=== PATIENT | male | born 2000 | race Caucasian/White ===

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

== ENCOUNTER 2019-01-27 17:10 | Emergency (ER) | payer OTHER ==
[~2019-01-27] VITALS: Ht 177.8 cm; Wt 113.3 kg
[2019-01-27 18:53] VITALS: BP 114/58
== END 2019-01-27 19:02 | disposition home or self-care (01) ==
LOC: M ED 17:10
DX: F33.9 Major depressive disorder, recurrent, unspecified (principal); F41.9 Anxiety disorder, unspecified; F60.0 Paranoid personality disorder

== ENCOUNTER → 2019-02-18 | Outpatient (REF) | payer OTHER ==
[2019-02-18 12:04] LABS: BASO % 0.5 % (0.0-1.0); EOS # 0.1 10^3/uL (0.0-0.50); EOS % 1.5 % (0.0-3.0); HEMATOCRIT 47.9 % (42.0-52.0); HEMOGLOBIN 15.9 g/dl (13.5-17.5); LYMPH # 2.6 10^3/uL (1.5-6.5); LYMPH % 33.4 % (24.0-44.0); MEAN CORPUSCULAR HEMOGLOBIN 29.3 pg (27.0-33.0); MEAN CORPUSCULAR HGB CONC 33.2 g/dl (32.0-36.5); MEAN CORPUSCULAR VOLUME 88.4 fl (80.0-96.0); MONO # 0.5 10^3/uL (0.0-0.8); MONO % 6.8 % (0.0-5.0); NEUTROPHILS # 4.5 10^3/uL (1.8-7.7); NEUTROPHILS % 57.5 % (36.0-66.0); PLATELET COUNT, AUTOMATED 261 10^3/uL (150-450); RED BLOOD COUNT 5.42 10^6/uL (4.30-6.10); WHITE BLOOD COUNT 7.8 10^3/uL (4.0-10.0)
[2019-02-18 12:19] LABS: ALBUMIN 4.2 GM/DL (3.2-5.2); ALT/SGPT 56 U/L (12-78); BILIRUBIN,TOTAL 0.7 MG/DL (0.2-1.0); BLOOD UREA NITROGEN 11 MG/DL (7-18); CARBON DIOXIDE LEVEL 29 MEQ/L (21-32); CHLORIDE LEVEL 106 MEQ/L (98-107); CHOLESTEROL LEVEL 163 MG/DL (<200); CHOLESTEROL RISK RATIO 4.179 (<5); CREATININE FOR GFR 0.89 MG/DL (0.70-1.30); GLUCOSE, FASTING 112 MG/DL (70-100); HDL CHOLESTEROL 39 MG/DL (>40); LDL CHOLESTEROL 102 MG/DL (<100); NON-HDL-C 124 MG/DL; POTASSIUM SERUM 3.7 MEQ/L (3.5-5.1); SODIUM LEVEL 142 MEQ/L (136-145); THYROID STIMULATING HORMONE 0.906 uIU/ML (0.463-3.98); TOTAL 25(OH) VITAMIN D 12.1 NG/ML (30.0-100.0); TOTAL PROTEIN 7.7 GM/DL (6.4-8.2); TRIGLYCERIDES LEVEL 108 MG/DL (<150)
[2019-02-18 12:46] LABS: HEMOGLOBIN A1c 5.2 %
== END ==
LOC: M LAB REF 11:33
PROVIDERS: ATTEND Nurse Practitioner Family
DX: Z13.9 Encounter for screening, unspecified (principal)

== ENCOUNTER → 2019-03-04 | Outpatient (REF) | payer OTHER ==
[2019-03-04 14:18] LABS: AMORPHOUS SEDIMENT LARGE (NEGATIVE); APPEARANCE, URINE TURBID (CLEAR); BACTERIA, URINE AUTO NEGATIVE (NEGATIVE); BILIRUBIN, URINE AUTO NEGATIVE (NEGATIVE); BLOOD, URINE BLOOD 1+ (NEGATIVE); CALCIUM OXALATE CRYSTALS SMALL; COLOR, URINE YELLOW (YELLOW); GLUCOSE, URINE (UA) AUTO NEGATIVE (NEGATIVE); KETONE, URINE AUTO NEGATIVE (NEGATIVE); LEUKOCYTE ESTERASE, URINE AUTO NEGATIVE (NEGATIVE); MUCUS, URINE SMALL (NEGATIVE); NITRITE, URINE AUTO NEGATIVE (NEGATIVE); PROTEIN, URINE AUTO NEGATIVE (NEGATIVE); RBC, URINE AUTO 0 /HPF (0-3); SPECIFIC GRAVITY URINE AUTO 1.031 (1.002-1.035); SQUAMOUS EPITHELIAL CELL UR AU 0 /HPF (0-6); UROBILINOGEN, URINE AUTO 0.2 mg/dL (0.0-2.0); WBC, URINE AUTO 0 /HPF (0-3)
[2019-03-04 15:34] LABS: CHLAMYDIA DNA AMPLIFICATION NEGATIVE (NEGATIVE); GC DNA AMPLIFICATION NEGATIVE (NEGATIVE)
== END ==
LOC: M LAB REF 13:21
PROVIDERS: ATTEND Nurse Practitioner Family
DX: N50.819 Testicular pain, unspecified (principal)

== ENCOUNTER → 2019-03-26 | Outpatient (CLI) | payer OTHER ==
[~2019-03-26] MED LIST changes: -TRAZ-160 PO; +TRAZ-252 PO
--- NOTE | 2019-03-26 14:07 | REP ---
SCROTAL ULTRASOUND: Real-time sonographic evaluation of the scrotum and contents performed. Testicles normal in size and echotexture, right testicle measuring 5.1 x 2.4 x 3.1 cm and left testicle 5.0 x 2.5 x 3.2 cm. There is no testicular mass or torsion, blood flow is seen in each testicle with duplex Doppler evaluation, RI right testicle 0.63 and left testicle 0.66. There are tiny cysts in each epididymal head measuring 4 mm. No fluid collection is seen. IMPRESSION: Essentially negative scrotal ultrasound with no mass or torsion. Tiny epididymal cysts. Electronically Signed by Toney Hinton MD 03/30/2019 09:46 A
== END ==
LOC: M RAD 08:33
PROVIDERS: ATTEND Nurse Practitioner Family
DX: N50.3 Cyst of epididymis (principal)

== ENCOUNTER → 2019-06-08 | Outpatient (CLI) | payer OTHER ==
[2019-06-08 17:32] LABS: BLOOD UREA NITROGEN 13 MG/DL (7-18); C REACTIVE PROTEIN QUANTITATIV < 0.30 MG/DL (0.00-0.30); CREATININE FOR GFR 0.87 MG/DL (0.70-1.30); RHEUMATOID FACTOR QUANT < 10.0 IU/ML (<15.0)
[2019-06-14 14:29] LABS: ANTINUCLEAR ANTIBODIES DIRECT Negative (Negative); HLA-B27 Negative (.)
== END ==
LOC: M LAB 16:28
PROVIDERS: ATTEND Physician Assistant
DX: M54.5 Low back pain (principal)

== ENCOUNTER 2019-06-16 16:45 | Outpatient (RCR) | payer OTHER ==
[2019-06-18] MEDS ORDERED: KETO10TAB PO (04:14)
== END 2019-06-19 ==
LOC: M PT 16:45
PROVIDERS: ATTEND Physician Assistant
DX: Z47.89 Encounter for other orthopedic aftercare (principal); M54.5 Low back pain; M22.2X1 Patellofemoral disorders, right knee; M22.2X2 Patellofemoral disorders, left knee

== ENCOUNTER 2019-06-18 01:16 | Emergency (ER) | payer OTHER ==
[~2019-06-18] VITALS: Ht 177.8 cm; Wt 106.4 kg
[2019-06-18] MEDS ORDERED: KETOROLAC 60 MG/2 ML VIAL (J1885) IM ONE (03:45)
[2019-06-18] MEDS ORDERED: KETO10TAB PO (04:14)
--- NOTE | 2019-06-18 04:22 | REPVR ---
EXAM: US Duplex Left Lower Extremity Veins, Limited EXAM DATE/TIME: 06/18/2019 4:00 AM CLINICAL HISTORY: 19 years old, male; Pain; Leg, lower; Left TECHNIQUE: Imaging protocol: Real-time Duplex ultrasound of the Left Lower Extremity with 2-D high scale, color Doppler flow and spectral waveform analysis with image documentation. Limited exam focused on the left lower extremity veins. COMPARISON: No relevant prior studies available. FINDINGS: Left deep veins: The common femoral, femoral and popliteal veins are patent without thrombus. Normal Doppler waveforms. Normal compressibility and/or augmentation response. Left superficial veins: Saphenofemoral junction is patent without thrombus. Soft tissues: Unremarkable. IMPRESSION: No evidence of deep vein thrombosis. Electronically signed by: Cortes Plunkett On 06/18/2019 04:21:50 AM
[2019-06-18 04:26] VITALS: BP 115/73
--- NOTE | 2019-06-18 08:22 | REP ---
Right knee four views : There is no fracture or dislocation. Mineralization and joint spaces are normal. There are no calcifications or foreign bodies. Impression: Negative right knee . Electronically Signed by Toney Adams MD 06/18/2019 08:14 A
== END 2019-06-18 04:35 | disposition home or self-care (01) ==
LOC: M ED 01:16
DX: M79.662 Pain in left lower leg (principal); M25.561 Pain in right knee; M11.20 Other chondrocalcinosis, unspecified site; F41.9 Anxiety disorder, unspecified; F17.210 Nicotine dependence, cigarettes, uncomplicated
CPT/HCPCS: 73560; 93971; 96372; 99283; J1885

== ENCOUNTER → 2019-07-01 | Outpatient (REF) | payer OTHER, MEDICAID ==
[~2019-07-01] MED LIST changes: +KETO10TAB PO
[2019-07-01 19:51] LABS: BASO % 0.3 % (0.0-1.0); EOS # 0.1 10^3/uL (0.0-0.5); EOS % 1.1 % (0.0-3.0); HEMATOCRIT 46.8 % (42.0-52.0); HEMOGLOBIN 15.9 g/dl (13.5-17.5); LYMPH # 2.9 10^3/uL (1.5-5.0); LYMPH % 29.7 % (24.0-44.0); MEAN CORPUSCULAR HEMOGLOBIN 29.8 pg (27.0-33.0); MEAN CORPUSCULAR VOLUME 87.6 fl (80.0-96.0); MONO # 0.6 10^3/uL (0.0-0.8); MONO % 6.1 % (0.0-5.0); NEUTROPHILS # 6.2 10^3/uL (1.5-8.5); NEUTROPHILS % 62.5 % (36.0-66.0); PLATELET COUNT, AUTOMATED 311 10^3/uL (150-450); RED BLOOD COUNT 5.34 10^6/uL (4.30-6.10); WHITE BLOOD COUNT 9.9 10^3/uL (4.0-10.0)
[2019-07-01 19:53] LABS: ALBUMIN 4.2 GM/DL (3.2-5.2); ALT/SGPT 47 U/L (12-78); BILIRUBIN,TOTAL 0.8 MG/DL (0.2-1.0); BLOOD UREA NITROGEN 9 MG/DL (7-18); CARBON DIOXIDE LEVEL 30 MEQ/L (21-32); CHLORIDE LEVEL 104 MEQ/L (98-107); CREATININE FOR GFR 1.06 MG/DL (0.70-1.30); GLUCOSE, FASTING 91 MG/DL (70-100); POTASSIUM SERUM 4.1 MEQ/L (3.5-5.1); SODIUM LEVEL 141 MEQ/L (136-145); TOTAL PROTEIN 7.6 GM/DL (6.4-8.2)
[2019-07-01 20:03] LABS: PTH INTACT 15.7 PG/ML (18.5-88.0)
== END ==
LOC: M LAB REF 19:25
PROVIDERS: ATTEND Nurse Practitioner Family
DX: M25.561 Pain in right knee (principal); R53.83 Other fatigue

== ENCOUNTER → 2019-08-24 | Outpatient (REF) | payer OTHER ==
[2019-08-24 17:07] LABS: PLATELET COUNT, AUTOMATED 254 10^3/uL (150-450)
[2019-08-24 17:17] LABS: INR 1.12; PROTHROMBIN TIME 14.1 SECONDS (11.8-14.0)
[2019-08-24 17:18] LABS: PARTIAL THROMBOPLASTIN TIME 29.8 SECONDS (25.0-38.4)
== END ==
LOC: M LABDRAW1 16:40
PROVIDERS: ATTEND Physician Assistant
DX: Z01.812 Encounter for preprocedural laboratory examination (principal); M47.817 Spondylosis without myelopathy or radiculopathy, lumbosacral region

== ENCOUNTER → 2019-10-15 | Outpatient (CLI) | payer OTHER ==
[~2019-10-15] MED LIST changes: +GLUCAGON FOR INJ 1 MG VIAL (J1610) As Ordered ONE; +ISOVUE-370 76% 100ML VIAL (Q9967) As Ordered ONE; +VoLumen 0.1% SUSPENSION 450ML BOTTLE As Ordered ONE
--- NOTE | 2019-10-15 14:40 | REP ---
Clinical: Diarrhea. Crohn's disease. Technique: Axial contrast enhanced images from the lung bases to the pubic symphysis using CT enterographic technique including images obtained in arterial and portal venous phases of enhancement multiplanar MIP re-formations using low density oral contrast material and 100 ml Isovue 370 intravenous contrast. Findings: The small and large bowel is essentially unremarkable in both arterial and portal venous phases of enhancement. There is no evidence for submucosal edema/thickening, bowel wall thickening, infectious/inflammatory changes, stenosis/stricture, obstruction, or surrounding inflammatory stranding. No ascites. No free air. No obvious mesenteric adenopathy. Normal cecum, terminal ileum and appendix identified in the right lower quadrant. Liver, spleen, pancreas, gallbladder, bilateral adrenal glands and kidneys are normal. Pelvis demonstrates normal bladder and age appropriate prostate/seminal vesicles. No ascites. No adenopathy. No free air. Abdominal aorta and vasculature normal. Surrounding musculoskeletal structures are intact. Lung bases are clear. Impression: Normal CT enterography. No acute abdominopelvic pathology appreciated. Electronically Signed by Constantine Srivastava MD 10/15/2019 02:32 P
== END ==
LOC: M RAD 12:48
PROVIDERS: ATTEND Internal Medicine Gastroenterology
DX: K62.5 Hemorrhage of anus and rectum (principal); R19.7 Diarrhea, unspecified; K50.818 Crohn's disease of both small and large intestine with other complication
CPT/HCPCS: 74177; J1610; Q9967

== ENCOUNTER → 2019-10-21 | Outpatient (CLI) | payer OTHER ==
[~2019-10-21] MED LIST changes: -GLUCAGON FOR INJ 1 MG VIAL (J1610) As Ordered ONE; -ISOVUE-370 76% 100ML VIAL (Q9967) As Ordered ONE; -VoLumen 0.1% SUSPENSION 450ML BOTTLE As Ordered ONE
[2019-10-21 17:55] LABS: FREE T4 1.12 NG/DL (0.78-1.33); THYROID STIMULATING HORMONE 1.06 uIU/ML (0.463-3.98)
== END ==
LOC: M LAB 16:13
PROVIDERS: ATTEND Internal Medicine Gastroenterology
DX: R19.7 Diarrhea, unspecified (principal)

== ENCOUNTER 2019-12-31 12:34 | Day surgery (SDC) | payer OTHER ==
[~2019-12-31] VITALS: Ht 175.3 cm; Wt 92.1 kg
[~2019-12-31 12:34] MED LIST changes: +NS 1,000 ML IV ONE; +VITA500079 PO
[2019-12-31] MEDS ORDERED: propofoL 200 MG/20 ML VIAL As Ordered ONE ×2 (12:42→14:04)
[2019-12-31] MEDS ORDERED: LIDOCAINE 2% INJ 100 MG/5 ML SDV (FOR ANES.) As Ordered ONE (12:42)
--- NOTE | 2019-12-31 14:12 | ROOR ---
Patient Name: Yrn Rust Procedure Date: 12/31/2019 1:57 PM Date of : 2000 Age: 19 Room: [facility] Gender: Male Note Status: Finalized Procedure: Upper GI endoscopy Indications: Endoscopy to assess diarrhea in patient suspected of having disease of the small-bowel, Nausea Providers: Eduar HUITRON MD Referring MD: Annalee POST NP Requesting Provider: Medicines: Monitored Anesthesia Care Complications: No immediate complications. Procedure: Pre-Anesthesia Assessment: - The heart rate, respiratory rate, oxygen saturations, blood pressure, adequacy of pulmonary ventilation, and response to care were monitored throughout the procedure. The Endoscope was introduced through the mouth, and advanced to the second part of duodenum. The upper GI endoscopy was accomplished without difficulty. The patient tolerated the procedure well. Findings: Moderately severe esophagitis was found at the gastroesophageal junction. Biopsies were taken with a cold forceps for histology. The exam of the esophagus was otherwise normal. The entire examined stomach was normal. The examined duodenum was normal. Biopsies for histology were taken with a cold forceps for evaluation of celiac disease. Impression: - Moderately severe reflux esophagitis. Biopsied. - Otherwise normal stomach. - Normal stomach. - Normal examined duodenum. Biopsied. Recommendation: - Use Prilosec (omeprazole) 40 mg PO daily for 3 months. - (the script was sent to your pharmacy on file) Eduar Huitron MD Eduar HUITRON MD 12/31/2019 2:11:42 PM Electronically signed by Eduar HUITRON MD Number of Addenda: 0 Note Initiated On: 12/31/2019 1:57 PM Estimated Blood Loss: Estimated blood loss: none.
--- NOTE | 2019-12-31 14:31 | ROOR ---
Patient Name: Yrn Rust Procedure Date: 12/31/2019 1:58 PM Date of : 2000 Age: 19 Room: [facility] Gender: Male Note Status: Finalized Procedure: Colonoscopy Indications: Irritable bowel syndrome with diarrhea, Change in bowel habits, Diarrhea Providers: Eduar HUITRON MD Referring MD: Annalee POST NP Requesting Provider: Medicines: Monitored Anesthesia Care Complications: No immediate complications. Procedure: Pre-Anesthesia Assessment: - The heart rate, respiratory rate, oxygen saturations, blood pressure, adequacy of pulmonary ventilation, and response to care were monitored throughout the procedure. The Colonoscope was introduced through the anus and advanced to 15 cm into the ileum. The colonoscopy was performed without difficulty. The patient tolerated the procedure well. The quality of the bowel preparation was good. Findings: The perianal and digital rectal examinations were normal. The terminal ileum appeared normal. The colon (entire examined portion) appeared normal. Biopsies were taken with a cold forceps in the entire colon for histology. Fluid aspiration for Clostridium difficile was performed. Impression: - Small internal Hemorrhoids. - The terminal ileum is normal. - The entire colon is normal. - Biopsies were taken with a cold forceps for histology in the entire colon. - Fluid aspiration was performed for C difficile. - (Irritable Bowel Syndrome/IBS suspected.) Recommendation: - Use fiber, for example Citrucel, Fibercon, Konsyl or Metamucil. - Use NuLev/Hyoscyamine as needed. Script sent to your pharmacy. - Lactose free diet. Eduar Huitron MD Eduar HUITRON MD 12/31/2019 2:30:55 PM Electronically signed by Eduar HUITRON MD Number of Addenda: 0 Note Initiated On: 12/31/2019 1:58 PM Estimated Blood Loss: Estimated blood loss: none.
[2019-12-31 15:00] VITALS: BP 115/72
[2019-12-31 15:40] LABS: CLOSTRIDIUM DIFFICILE PCR NEGATIVE (NEGATIVE)
== END 2019-12-31 15:28 | disposition home or self-care (01) ==
LOC: M OPP 12:34
PROVIDERS: ATTEND Internal Medicine Gastroenterology
DX: K58.0 Irritable bowel syndrome with diarrhea (principal); D12.6 Benign neoplasm of colon, unspecified; R19.4 Change in bowel habit; R19.7 Diarrhea, unspecified; K21.0 Gastro-esophageal reflux disease with esophagitis; F17.210 Nicotine dependence, cigarettes, uncomplicated

== ENCOUNTER 2020-05-22 14:52 | Emergency (ER) | payer OTHER ==
[~2020-05-22 14:52] MED LIST changes: -NS 1,000 ML IV ONE
[2020-06-18 20:25] LABS: BASO % 0.3 % (0.0-1.0); EOS # 0.1 10^3/uL (0.0-0.5); EOS % 0.7 % (0.0-3.0); HEMATOCRIT 47.5 % (42.0-52.0); HEMOGLOBIN 15.7 g/dl (13.5-17.5); LYMPH # 2.8 10^3/uL (1.5-5.0); LYMPH % 27.9 % (24.0-44.0); MEAN CORPUSCULAR HEMOGLOBIN 29.7 pg (27.0-33.0); MEAN CORPUSCULAR HGB CONC 33.1 g/dl (32.0-36.5); MONO # 0.4 10^3/uL (0.0-0.8); MONO % 4.4 % (0.0-5.0); NEUTROPHILS # 6.6 10^3/uL (1.5-8.5); NEUTROPHILS % 66.5 % (36.0-66.0); PLATELET COUNT, AUTOMATED 229 10^3/uL (150-450); RED BLOOD COUNT 5.28 10^6/uL (4.30-6.10)
[2020-06-18 23:13] LABS: AMORPHOUS SEDIMENT MODERATE (NEGATIVE); APPEARANCE, URINE CLOUDY (CLEAR); BACTERIA, URINE AUTO NEGATIVE (NEGATIVE); BILIRUBIN, URINE AUTO NEGATIVE (NEGATIVE); BLOOD, URINE BLOOD NEGATIVE (NEGATIVE); COLOR, URINE YELLOW (YELLOW); GLUCOSE, URINE (UA) AUTO NEGATIVE (NEGATIVE); KETONE, URINE AUTO NEGATIVE (NEGATIVE); LEUKOCYTE ESTERASE, URINE AUTO NEGATIVE (NEGATIVE); MUCUS, URINE SMALL (NEGATIVE); NITRITE, URINE AUTO NEGATIVE (NEGATIVE); PROTEIN, URINE AUTO NEGATIVE (NEGATIVE); RBC, URINE AUTO 3 /HPF (0-3); SPECIFIC GRAVITY URINE AUTO 1.018 (1.002-1.035); SQUAMOUS EPITHELIAL CELL UR AU 0 /HPF (0-6); UROBILINOGEN, URINE AUTO 0.2 mg/dL (0.0-2.0); WBC, URINE AUTO 0 /HPF (0-3)
[2020-07-11 14:13] LABS: ALBUMIN 4.2 GM/DL (3.2-5.2); ALT/SGPT 33 U/L (12-78); BILIRUBIN,TOTAL 0.5 MG/DL (0.2-1.0); BLOOD UREA NITROGEN 12 MG/DL (7-18); CALCIUM LEVEL 9.5 MG/DL (8.5-10.1); CARBON DIOXIDE LEVEL 28 MEQ/L (21-32); CHLORIDE LEVEL 108 MEQ/L (98-107); CREATININE FOR GFR 0.84 MG/DL (0.70-1.30); GLOMERULAR FILTRATION RATE > 60.0 (>60); GLUCOSE, FASTING 82 MG/DL (70-100); POTASSIUM SERUM 3.9 MEQ/L (3.5-5.1); SODIUM LEVEL 142 MEQ/L (136-145); TOTAL PROTEIN 7.3 GM/DL (6.4-8.2)
== END 2020-05-22 18:55 | disposition home or self-care (01) ==
LOC: M ED 14:52
DX: A08.4 Viral intestinal infection, unspecified (principal); Z87.820 Personal history of traumatic brain injury; F17.200 Nicotine dependence, unspecified, uncomplicated

== ENCOUNTER 2020-06-07 13:59 | Emergency (ER) | payer OTHER ==
[~2020-06-07] VITALS: Ht 177.8 cm; Wt 91.7 kg
[2020-06-07] MEDS ORDERED: ACETAMINOPHEN 500 MG TAB PO ONE (15:45)
[2020-06-07] MEDS ORDERED: ONDANSETRON 4MG/2ML VIAL IV ONE (15:45)
[2020-06-07] MEDS ORDERED: NS 1,000 ML IV ONE (15:45)
[2020-06-07 18:01] LABS: BASO % 0.3 % (0.0-1.0); EOS % 0.3 % (0.0-3.0); HEMATOCRIT 47.8 % (42.0-52.0); HEMOGLOBIN 16.1 g/dl (13.5-17.5); MEAN CORPUSCULAR HEMOGLOBIN 30.3 pg (27.0-33.0); MEAN CORPUSCULAR HGB CONC 33.7 g/dl (32.0-36.5); MEAN CORPUSCULAR VOLUME 89.8 fl (80.0-96.0); MONO # 0.5 10^3/uL (0.0-0.8); MONO % 5.5 % (0.0-5.0); NEUTROPHILS # 6.6 10^3/uL (1.5-8.5); NEUTROPHILS % 71.4 % (36.0-66.0); PLATELET COUNT, AUTOMATED 245 10^3/uL (150-450); RED BLOOD COUNT 5.32 10^6/uL (4.30-6.10); WHITE BLOOD COUNT 9.2 10^3/uL (4.0-10.0)
[2020-06-07 19:10] LABS: ALBUMIN 4.5 GM/DL (3.2-5.2); ALT/SGPT 23 U/L (12-78); BILIRUBIN,DIRECT 0.2 MG/DL (0.0-0.2); BILIRUBIN,TOTAL 0.7 MG/DL (0.2-1.0); BLOOD UREA NITROGEN 7 MG/DL (7-18); CALCIUM LEVEL 9.8 MG/DL (8.5-10.1); CARBON DIOXIDE LEVEL 29 MEQ/L (21-32); CHLORIDE LEVEL 107 MEQ/L (98-107); CK-MB VALUE MASS < 1.0 NG/ML (<3.6); CPK CREATINE PHOSPHOKINASE 150 U/L (39-308); GLOMERULAR FILTRATION RATE > 60.0 (>60); GLUCOSE, FASTING 86 MG/DL (70-100); LIPASE 73 U/L (73-393); MB/CK RELATIVE INDEX 0.67 (< OR =4); POTASSIUM SERUM 4.3 MEQ/L (3.5-5.1); SODIUM LEVEL 141 MEQ/L (136-145); TOTAL PROTEIN 7.6 GM/DL (6.4-8.2); TROPONIN I < 0.02 NG/ML (< 0.10)
[2020-06-07 19:28] VITALS: BP 114/86
[2020-06-07 19:42] LABS: AMPHETAMINES LEVEL URINE NEGATIVE (NEGATIVE); BARBITURATES URINE NEGATIVE (NEGATIVE); BENZODIAZEPINES URINE NEGATIVE (NEGATIVE); CANNABINOIDS URINE POSITIVE (NEGATIVE); COCAINE METABOLITE URINE NEGATIVE (NEGATIVE); METHADONE URINE NEGATIVE (NEGATIVE); OPIATES URINE NEGATIVE (NEGATIVE); PHENCYCLIDINE URINE NEGATIVE (NEGATIVE)
== END 2020-06-07 19:39 | disposition left against medical advice (07) ==
LOC: M ED 13:59
DX: R11.2 Nausea with vomiting, unspecified (principal); J02.9 Acute pharyngitis, unspecified; R05 Cough; R51 Headache; F12.90 Cannabis use, unspecified, uncomplicated; K21.9 Gastro-esophageal reflux disease without esophagitis; F33.9 Major depressive disorder, recurrent, unspecified; F41.9 Anxiety disorder, unspecified; Z53.9 Procedure and treatment not carried out, unspecified reason; F17.210 Nicotine dependence, cigarettes, uncomplicated; Z91.041 Radiographic dye allergy status
CPT/HCPCS: 36415; 80048; 80076; 80307; 82550; 82553; 83690; 85025; 87486; 87581; 87633; 87798; 87880; 96361; 96374; 99284; J2405

== ENCOUNTER → 2021-02-12 | Outpatient (CLI) | payer OTHER ==
[~2021-02-12] MED LIST changes: +EXCETAB33 PO; +TUMS500C PO; +ZOFR4TAB16 PO
[2021-02-12 18:32] LABS: BASO % 0.3 % (0.0-1.0); EOS # 0.2 10^3/uL (0.0-0.5); EOS % 1.8 % (0.0-3.0); HEMATOCRIT 46.8 % (42.0-52.0); HEMOGLOBIN 15.4 g/dl (13.5-17.5); LYMPH # 3.2 10^3/uL (1.5-5.0); LYMPH % 34.5 % (24.0-44.0); MEAN CORPUSCULAR HEMOGLOBIN 29.6 pg (27.0-33.0); MEAN CORPUSCULAR HGB CONC 32.9 g/dl (32.0-36.5); MEAN CORPUSCULAR VOLUME 89.8 fl (80.0-96.0); MONO # 0.7 10^3/uL (0.0-0.8); MONO % 7.8 % (2.0-8.0); NEUTROPHILS # 5.2 10^3/uL (1.5-8.5); NEUTROPHILS % 55.3 % (36.0-66.0); PLATELET COUNT, AUTOMATED 271 10^3/uL (150-450); RED BLOOD COUNT 5.21 10^6/uL (4.30-6.10); WHITE BLOOD COUNT 9.4 10^3/uL (4.0-10.0)
[2021-02-12 18:58] LABS: ALBUMIN 4.3 GM/DL (3.2-5.2); ALT/SGPT 43 U/L (12-78); BILIRUBIN,TOTAL 0.5 MG/DL (0.2-1.0); BLOOD UREA NITROGEN 15 MG/DL (7-18); CALCIUM LEVEL 10.1 MG/DL (8.5-10.1); CARBON DIOXIDE LEVEL 30 MEQ/L (21-32); CHLORIDE LEVEL 103 MEQ/L (98-107); CREATININE FOR GFR 0.78 MG/DL (0.70-1.30); GLOMERULAR FILTRATION RATE > 60.0 (>60); GLUCOSE, FASTING 83 MG/DL (70-100); LIPASE 80 U/L (73-393); POTASSIUM SERUM 4.2 MEQ/L (3.5-5.1); SODIUM LEVEL 138 MEQ/L (136-145); TOTAL PROTEIN 7.4 GM/DL (6.4-8.2)
== END ==
LOC: M LAB 16:27
PROVIDERS: ATTEND Internal Medicine
DX: R10.9 Unspecified abdominal pain (principal)

== ENCOUNTER 2021-02-14 11:54 | Emergency (ER) | payer OTHER ==
[~2021-02-14] VITALS: Ht 177.8 cm; Wt 104.8 kg
[~2021-02-14 11:54] MED LIST changes: -EXCETAB33 PO; -TUMS500C PO; -ZOFR4TAB16 PO
[2021-02-14] MEDS ORDERED: EXCETAB33 PO (12:11)
[2021-02-14] MEDS ORDERED: TUMS500C PO (12:11)
[2021-02-14] MEDS ORDERED: NS 1,000 ML IV ONE (13:10)
[2021-02-14 13:35] LABS: BASO % 0.3 % (0.0-1.0); EOS # 0.1 10^3/uL (0.0-0.5); EOS % 1.5 % (0.0-3.0); HEMATOCRIT 48.2 % (42.0-52.0); HEMOGLOBIN 16.1 g/dl (13.5-17.5); MEAN CORPUSCULAR HEMOGLOBIN 29.9 pg (27.0-33.0); MEAN CORPUSCULAR HGB CONC 33.4 g/dl (32.0-36.5); MEAN CORPUSCULAR VOLUME 89.4 fl (80.0-96.0); MONO # 0.5 10^3/uL (0.0-0.8); MONO % 6.7 % (2.0-8.0); NEUTROPHILS # 4.5 10^3/uL (1.5-8.5); NEUTROPHILS % 63.1 % (36.0-66.0); PLATELET COUNT, AUTOMATED 243 10^3/uL (150-450); RED BLOOD COUNT 5.39 10^6/uL (4.30-6.10); WHITE BLOOD COUNT 7.2 10^3/uL (4.0-10.0)
[2021-02-14 14:23] LABS: ALBUMIN 4.3 GM/DL (3.2-5.2); BILIRUBIN,DIRECT 0.1 MG/DL (0.0-0.2); BILIRUBIN,TOTAL 0.4 MG/DL (0.2-1.0); TOTAL PROTEIN 7.2 GM/DL (6.4-8.2)
[2021-02-14 14:51] VITALS: BP 136/78
[2021-02-14] MEDS ORDERED: ZOFR4TAB16 PO (14:57)
== END 2021-02-14 15:18 | disposition home or self-care (01) ==
LOC: M ED 11:54
DX: R10.84 Generalized abdominal pain (principal); R11.0 Nausea; Z79.82 Long term (current) use of aspirin; Z79.899 Other long term (current) drug therapy; Z87.820 Personal history of traumatic brain injury

== ENCOUNTER 2021-02-22 22:24 | Emergency (ER) | payer OTHER ==
[~2021-02-22] VITALS: Ht 177.8 cm; Wt 103.8 kg
[~2021-02-22 22:24] MED LIST changes: +EXCETAB33 PO; +TUMS500C PO; +ZOFR4TAB16 PO
[2021-02-23] MEDS ORDERED: AUGMENTIN 875 MG TAB PO ONE (01:40)
[2021-02-23] MEDS ORDERED: AUGM875T28 PO (01:42)
[2021-02-23] MEDS ORDERED: BOOSTRIX/ADACEL VACCINE (DIPHTH/PERTUSS/ACELL/TETANUS) 0.5ML SYR IM ONE (01:45)
[2021-02-23 01:58] VITALS: BP 151/97
== END 2021-02-23 02:01 | disposition home or self-care (01) ==
LOC: M ED 22:24
DX: S00.81XA Abrasion of other part of head, initial encounter (principal); W54.0XXA Bitten by dog, initial encounter; Y92.410 Unspecified street and highway as the place of occurrence of the external cause; Y93.9 Activity, unspecified; Y99.9 Unspecified external cause status; K21.9 Gastro-esophageal reflux disease without esophagitis; M54.9 Dorsalgia, unspecified; Z87.442 Personal history of urinary calculi; Z87.820 Personal history of traumatic brain injury; F17.290 Nicotine dependence, other tobacco product, uncomplicated; F12.10 Cannabis abuse, uncomplicated; Z91.041 Radiographic dye allergy status

== ENCOUNTER 2021-10-19 19:46 | Emergency (ER) | payer OTHER ==
[~2021-10-19] VITALS: Ht 177.8 cm; Wt 89.8 kg
[~2021-10-19 19:46] MED LIST changes: +AUGM875T28 PO
[2021-10-19 19:47] VITALS: BP 131/84
--- NOTE | 2021-10-19 20:48 | REP ---
INDICATION: sob COMPARISON: None. TECHNIQUE: PA and lateral. FINDINGS: The mediastinum and cardiac silhouette are normal. The lung heaton are clear and without acute consolidation, effusion, or pneumothorax. The skeletal structures are intact and normal. IMPRESSION: No acute cardiopulmonary process. <Electronically signed by Constantine Srivastava > 10/19/21 [id number]
== END 2021-10-19 23:50 | disposition left against medical advice (07) ==
LOC: M ED 19:46
DX: Z53.21 Procedure and treatment not carried out due to patient leaving prior to being seen by health care provider (principal)

== ENCOUNTER 2022-03-05 19:16 | Emergency (ER) | payer OTHER ==
[~2022-03-05] VITALS: Ht 177.8 cm; Wt 88.1 kg
[2022-03-05 19:16] VITALS: BP 175/69
[~2022-03-05 19:16] MED LIST changes: +EXCETAB32 PO; -EXCETAB33 PO
[2022-03-05] MEDS ORDERED: ONDA4TAB6 (19:37)
[2022-03-06] MEDS ORDERED: VENTAER INH (13:55)
[2022-03-06] MEDS ORDERED: ONDA4TAB6 PO (13:55)
[2022-03-06] MEDS ORDERED: BENZ200C70 PO (13:55)
== END 2022-03-05 19:43 | disposition left against medical advice (07) ==
LOC: M ED 19:16
DX: Z53.21 Procedure and treatment not carried out due to patient leaving prior to being seen by health care provider (principal)

== ENCOUNTER 2022-03-06 10:07 | Emergency (ER) | payer OTHER ==
[~2022-03-06] VITALS: Ht 177.8 cm; Wt 87.8 kg
[~2022-03-06 10:07] MED LIST changes: +ONDA4TAB6
[2022-03-06 10:09] VITALS: BP 129/74
[2022-03-06 11:36] LABS: RSV AMPLIFICATION NEGATIVE (NEGATIVE)
[2022-03-06] MEDS ORDERED: ONDANSETRON 4MG ORAL DISINTEGRATING TAB PO ONE (12:55)
[2022-03-06] MEDS ORDERED: ALBUTEROL 90 MCG/ACT 8GM HFA INHALER INH ONE (12:55)
[2022-03-06] MEDS ORDERED: BENZ200C70 PO (13:55)
[2022-03-06] MEDS ORDERED: ONDA4TAB6 PO (13:55)
[2022-03-06] MEDS ORDERED: VENTAER INH (13:55)
== END 2022-03-06 14:14 | disposition home or self-care (01) ==
LOC: M ED 10:07
DX: J20.9 Acute bronchitis, unspecified (principal); K21.9 Gastro-esophageal reflux disease without esophagitis; F41.9 Anxiety disorder, unspecified; M54.50 Low back pain, unspecified; F12.10 Cannabis abuse, uncomplicated; Z91.048 Other nonmedicinal substance allergy status

== ENCOUNTER → 2022-04-26 | Outpatient (REF) | payer OTHER ==
[~2022-04-26] MED LIST changes: +BENZ200C70 PO; +ONDA4TAB6 PO; +VENTAER INH
[2022-04-26 12:20] LABS: BASO # 0.1 10^3/uL (0.0-0.2); BASO % 0.6 % (0.0-1.0); EOS # 0.3 10^3/uL (0.0-0.5); EOS % 3.3 % (0.0-3.0); HEMATOCRIT 50.1 % (42.0-52.0); HEMOGLOBIN 16.5 g/dl (13.5-17.5); LYMPH % 35.8 % (24.0-44.0); MEAN CORPUSCULAR HEMOGLOBIN 29.7 pg (27.0-33.0); MEAN CORPUSCULAR HGB CONC 32.9 g/dl (32.0-36.5); MEAN CORPUSCULAR VOLUME 90.1 fl (80.0-96.0); MONO # 0.6 10^3/uL (0.0-0.8); MONO % 6.9 % (2.0-8.0); NEUTROPHILS # 4.4 10^3/uL (1.5-8.5); NEUTROPHILS % 53.2 % (36.0-66.0); PLATELET COUNT, AUTOMATED 261 10^3/uL (150-450); RED BLOOD COUNT 5.56 10^6/uL (4.30-6.10); WHITE BLOOD COUNT 8.3 10^3/uL (4.0-10.0)
[2022-04-26 12:27] LABS: APPEARANCE, URINE HAZY (CLEAR); BACTERIA, URINE AUTO NEGATIVE (NEGATIVE); BILIRUBIN, URINE AUTO NEGATIVE (NEGATIVE); BLOOD, URINE BLOOD NEGATIVE (NEGATIVE); COLOR, URINE YELLOW (YELLOW); GLUCOSE, URINE (UA) AUTO NEGATIVE (NEGATIVE); KETONE, URINE AUTO TRACE mg/dL (NEGATIVE); LEUKOCYTE ESTERASE, URINE AUTO NEGATIVE (NEGATIVE); MUCUS, URINE SMALL (NEGATIVE); NITRITE, URINE AUTO NEGATIVE (NEGATIVE); PROTEIN, URINE AUTO NEGATIVE (NEGATIVE); RBC, URINE AUTO 1 /HPF (0-3); SPECIFIC GRAVITY URINE AUTO 1.025 (1.002-1.035); SQUAMOUS EPITHELIAL CELL UR AU 0 /HPF (0-6); URIC ACID CRYSTALS SMALL; WBC, URINE AUTO 2 /HPF (0-3)
[2022-04-26 12:53] LABS: ERYTHROCYTE SEDIMENTATION RATE 1 mm/hr (0-15)
[2022-04-26 12:58] LABS: C REACTIVE PROTEIN QUANTITATIV < 0.30 MG/DL (0.00-0.30); COMPLEMENT C3 105 MG/DL (90-180); COMPLEMENT C4 29 MG/DL (10-40); IMMUNOGLOBULIN G 811 MG/DL (681-1648); IMMUNOGLOBULIN M 97.5 MG/DL (40-230); IRON (FE) 72 UG/DL (65-175); MAGNESIUM LEVEL 2.1 MG/DL (1.8-2.4); PHOSPHORUS LEVEL 4.5 MG/DL (2.5-4.9); TOTAL PROTEIN 7.5 GM/DL (6.4-8.2)
[2022-04-26 13:01] LABS: VITAMIN B12 LEVEL 403 PG/ML (247-911)
[2022-04-26 13:04] LABS: TOTAL PROTEIN,RANDOM URINE 16.1 MG/DL (0.0-12.0)
[2022-04-26 13:11] LABS: TOTAL 25(OH) VITAMIN D 30.4 NG/ML (30.0-100.0)
[2022-04-30 12:07] LABS: ALBUMIN 4.81 GM/DL (3.29-5.55); ALBUMIN % 64.1 % (55.8-66.1); ALPHA-1-GLOBULIN % 4.2 % (2.9-4.9); ALPHA-1-GLOBULINS 0.32 GM/DL (0.17-0.41); ALPHA-2-GLOBULINS 0.72 GM/DL (0.42-0.99); ALPHA-2-GLOBULINS % 9.6 % (7.1-11.8); BETA-1-GLOBULINS 0.47 GM/DL (0.28-0.60); BETA-1-GLOBULINS % 6.2 % (4.7-7.2); BETA-2-GLOBULINS 0.35 GM/DL (0.19-0.55); BETA-2-GLOBULINS % 4.6 % (3.2-6.5); GAMMA GLOBULIN % 11.3 % (11.1-18.8); GAMMA GLOBULINS 0.85 GM/DL (0.65-1.58)
== END ==
LOC: M SFHCRHEU 10:43
PROVIDERS: ATTEND Internal Medicine
DX: R76.8 Other specified abnormal immunological findings in serum (principal); M79.10 Myalgia, unspecified site; M54.9 Dorsalgia, unspecified; J06.9 Acute upper respiratory infection, unspecified; M25.50 Pain in unspecified joint